=== PATIENT | male | born 1955 | race Caucasian/White ===

== ENCOUNTER 2017-03-22 21:02 | Emergency (ER) | payer BC ==
[2017-03-22] MEDS ORDERED: CEFAZOLIN SODIUM 1 GM PDS 1 GM in SODIUM CHLORIDE 0.9% 100 ML 100 ML IV ONE (21:21)
[2017-03-22] MEDS ORDERED: CEFAZOLIN SODIUM 1 GM PDS ONE (21:21)
[2017-03-22 21:43] LABS: BASOPHILS % (AUTO) 1 % (0-3); EOSINOPHILS % (AUTO) 3 % (0-9); HEMATOCRIT 41 % (39-53); MEAN CORPUSCULAR HGB CONC 33.8 gm/dl (32.0-36.0); MEAN CORPUSCULAR VOLUME 90 fL (80-100); MONOCYTES % (AUTO) 8.4 % (0-12); NEUTROPHILS % (AUTO) 67.8 % (37-80)
[2017-03-22 21:51] LABS: CALCIUM 8.5 mg/dl (8.5-10.1); POTASSIUM 4.1 mMol/L (3.5-5.1)
[2017-03-22] MEDS ORDERED: SODIUM CHLORIDE 0.9% FLUSH 10 ML SOL IV PRN (22:06)
[2017-03-22] MEDS ORDERED: LIDOCAINE HCL 1% MDV SOL SC ONE (22:26)
[2017-03-22] MEDS ORDERED: LIDOCAINE HCL 1% MPF SOL ONE (22:28)
[2017-03-22] MEDS ORDERED: MORPHINE SULFATE 10 MG/ML SOL ONE (22:33)
[2017-03-22] MEDS ORDERED: MORPHINE SULFATE 10 MG/ML SOL INH ONE (22:33)
[2017-03-22 22:53] VITALS: RESP 18; TEMP 99.7
[2017-03-23 00:40] VITALS: BP 121/91; PULSE 107; O2SAT 93
== END 2017-03-23 00:03 | disposition short-term general hospital (02) ==
LOC: ED 21:02
DX: S92.212B Displaced fracture of cuboid bone of left foot, initial encounter for open fracture (principal); S97.82XA Crushing injury of left foot, initial encounter; S91.322A Laceration with foreign body, left foot, initial encounter; W31.82XA Contact with other commercial machinery, initial encounter
CPT/HCPCS: 99285 ×2; 80048; 85025; 85610; J0690; J2001; J2270; 73630

== ENCOUNTER 2017-05-13 08:35 | Inpatient (IN) | payer BC ==
[2017-05-13] MEDS ORDERED: MAGNESIUM HYDROXIDE 30 ML SUS PO PRN (11:09)
[2017-05-13] MEDS ORDERED: OXYCODONE HYDROCHLORIDE 5 MG TAB PO PRN (11:09)
[2017-05-13] MEDS ORDERED: SENNOSIDES A AND B 8.6 MG TAB PO PRN (11:10)
[2017-05-13] MEDS: TRAMADOL HYDROCHLORIDE 50 MG TAB PO SCH ×2 (15:00→20:54)
[2017-05-13] MEDS: PIPERACILLIN/TAZOBACT 3.375 GM PDS IV SCH ×2 (16:31→23:57)
[2017-05-13] MEDS: SODIUM CHLORIDE 0.9% FLUSH 10 ML SOL IV SCH (16:31)
[2017-05-13] MEDS ORDERED: PIPERACILLIN/TAZOBACT 3.375 GM PDS IV SCH (18:00)
[2017-05-13] MEDS: RIVAROXABAN 15 MG PO SCH (20:54)
[2017-05-14] MEDS: SODIUM CHLORIDE 0.9% FLUSH 10 ML SOL IV SCH ×4 (00:07→16:18)
[2017-05-14] MEDS: TRAMADOL HYDROCHLORIDE 50 MG TAB PO SCH ×4 (03:02→21:33)
[2017-05-14] MEDS: PIPERACILLIN/TAZOBACT 3.375 GM PDS IV SCH ×3 (07:54→23:45)
[2017-05-14] MEDS: CITALOPRAM 20 MG TAB PO SCH ×2 (08:43→14:40)
[2017-05-14] MEDS: MULTIVITAMIN2 1 EA TAB PO SCH (08:44)
[2017-05-14] MEDS: RIVAROXABAN 15 MG PO SCH ×2 (08:44→21:32)
[2017-05-14] MEDS: SODIUM CHLORIDE 0.9% FLUSH 10 ML SOL IV PRN ×2 (12:34→21:34)
[2017-05-15] MEDS: SODIUM CHLORIDE 0.9% FLUSH 10 ML SOL IV SCH ×3 (00:11→17:09)
[2017-05-15] MEDS: TRAMADOL HYDROCHLORIDE 50 MG TAB PO SCH ×4 (03:07→21:12)
[2017-05-15] MEDS: MULTIVITAMIN2 1 EA TAB PO SCH (09:46)
[2017-05-15] MEDS: RIVAROXABAN 15 MG PO SCH ×2 (09:48→21:13)
[2017-05-15] MEDS: CITALOPRAM 20 MG TAB PO SCH (09:49)
[2017-05-15] MEDS: PIPERACILLIN/TAZOBACT 3.375 GM PDS IV SCH ×2 (09:51→17:04)
[2017-05-15] MEDS ORDERED: TRAMADOL HYDROCHLORIDE 50 MG TAB ONE ×2 (16:52→20:57)
[2017-05-16] MEDS: SODIUM CHLORIDE 0.9% FLUSH 10 ML SOL IV SCH ×3 (00:14→16:00)
[2017-05-16] MEDS: PIPERACILLIN/TAZOBACT 3.375 GM PDS IV SCH ×3 (00:17→15:53)
[2017-05-16] MEDS: TRAMADOL HYDROCHLORIDE 50 MG TAB PO SCH ×4 (03:54→20:38)
[2017-05-16] MEDS: RIVAROXABAN 15 MG PO SCH ×2 (08:31→20:38)
[2017-05-16] MEDS: MULTIVITAMIN2 1 EA TAB PO SCH (08:31)
[2017-05-16] MEDS: CITALOPRAM 20 MG TAB PO SCH (08:31)
[2017-05-16] MEDS: SODIUM CHLORIDE 0.9% FLUSH 10 ML SOL IV PRN (12:25)
[2017-05-17] MEDS: SODIUM CHLORIDE 0.9% FLUSH 10 ML SOL IV SCH ×4 (00:16→18:53)
[2017-05-17] MEDS: PIPERACILLIN/TAZOBACT 3.375 GM PDS IV SCH ×3 (00:16→15:32)
[2017-05-17] MEDS: TRAMADOL HYDROCHLORIDE 50 MG TAB PO SCH ×4 (04:19→20:01)
[2017-05-17] MEDS: RIVAROXABAN 15 MG PO SCH ×2 (08:07→20:01)
[2017-05-17] MEDS: CITALOPRAM 20 MG TAB PO SCH (08:07)
[2017-05-17] MEDS: MULTIVITAMIN2 1 EA TAB PO SCH (08:08)
[2017-05-18] MEDS: SODIUM CHLORIDE 0.9% FLUSH 10 ML SOL IV SCH ×3 (00:20→18:34)
[2017-05-18] MEDS: PIPERACILLIN/TAZOBACT 3.375 GM PDS IV SCH ×3 (00:21→15:20)
[2017-05-18] MEDS: TRAMADOL HYDROCHLORIDE 50 MG TAB PO SCH ×4 (03:32→21:24)
[2017-05-18] MEDS: MULTIVITAMIN2 1 EA TAB PO SCH (08:10)
[2017-05-18] MEDS: CITALOPRAM 20 MG TAB PO SCH (08:10)
[2017-05-18] MEDS: SODIUM CHLORIDE 0.9% FLUSH 10 ML SOL IV PRN (15:20)
[2017-05-18] MEDS: RIVAROXABAN 10 MG TAB PO SCH (18:34)
[2017-05-19] MEDS: PIPERACILLIN/TAZOBACT 3.375 GM PDS IV SCH ×3 (00:41→15:51)
[2017-05-19] MEDS: SODIUM CHLORIDE 0.9% FLUSH 10 ML SOL IV SCH ×3 (00:42→16:00)
[2017-05-19] MEDS: TRAMADOL HYDROCHLORIDE 50 MG TAB PO SCH ×4 (03:42→20:05)
[2017-05-19] MEDS: MULTIVITAMIN2 1 EA TAB PO SCH (08:21)
[2017-05-19] MEDS: CITALOPRAM 20 MG TAB PO SCH (08:21)
[2017-05-19] MEDS: SODIUM CHLORIDE 0.9% FLUSH 10 ML SOL IV PRN (13:09)
[2017-05-19] MEDS: RIVAROXABAN 10 MG TAB PO SCH (17:19)
[2017-05-20] MEDS: PIPERACILLIN/TAZOBACT 3.375 GM PDS IV SCH ×3 (00:09→15:36)
[2017-05-20] MEDS: SODIUM CHLORIDE 0.9% FLUSH 10 ML SOL IV SCH ×4 (00:10→17:23)
[2017-05-20] MEDS: TRAMADOL HYDROCHLORIDE 50 MG TAB PO SCH ×4 (03:51→20:02)
[2017-05-20] MEDS: MULTIVITAMIN2 1 EA TAB PO SCH (08:19)
[2017-05-20] MEDS: CITALOPRAM 20 MG TAB PO SCH (08:19)
[2017-05-20] MEDS: RIVAROXABAN 10 MG TAB PO SCH (17:29)
[2017-05-21] MEDS: PIPERACILLIN/TAZOBACT 3.375 GM PDS IV SCH ×3 (00:09→16:34)
[2017-05-21] MEDS: SODIUM CHLORIDE 0.9% FLUSH 10 ML SOL IV PRN ×2 (00:10→07:40)
[2017-05-21] MEDS: SODIUM CHLORIDE 0.9% FLUSH 10 ML SOL IV SCH ×3 (00:10→16:46)
[2017-05-21] MEDS: TRAMADOL HYDROCHLORIDE 50 MG TAB PO SCH ×4 (04:53→20:08)
[2017-05-21] MEDS: CITALOPRAM 20 MG TAB PO SCH (09:01)
[2017-05-21] MEDS: MULTIVITAMIN2 1 EA TAB PO SCH (09:01)
[2017-05-21] MEDS: RIVAROXABAN 10 MG TAB PO SCH (18:44)
[2017-05-22] MEDS: PIPERACILLIN/TAZOBACT 3.375 GM PDS IV SCH ×3 (00:33→16:34)
[2017-05-22] MEDS: TRAMADOL HYDROCHLORIDE 50 MG TAB PO SCH ×4 (03:52→21:21)
[2017-05-22] MEDS: SODIUM CHLORIDE 0.9% FLUSH 10 ML SOL IV SCH ×3 (03:53→16:34)
[2017-05-22] MEDS: CITALOPRAM 20 MG TAB PO SCH (09:51)
[2017-05-22] MEDS: MULTIVITAMIN2 1 EA TAB PO SCH (09:51)
[2017-05-22] MEDS: RIVAROXABAN 10 MG TAB PO SCH (18:54)
[2017-05-23] MEDS: SODIUM CHLORIDE 0.9% FLUSH 10 ML SOL IV SCH ×3 (00:59→16:55)
[2017-05-23] MEDS: PIPERACILLIN/TAZOBACT 3.375 GM PDS IV SCH ×3 (00:59→15:33)
[2017-05-23] MEDS: TRAMADOL HYDROCHLORIDE 50 MG TAB PO SCH ×4 (02:54→20:55)
[2017-05-23] MEDS: CITALOPRAM 20 MG TAB PO SCH (09:02)
[2017-05-23] MEDS: MULTIVITAMIN2 1 EA TAB PO SCH (09:02)
[2017-05-23] MEDS: SODIUM CHLORIDE 0.9% FLUSH 10 ML SOL IV PRN ×2 (11:58→15:34)
[2017-05-23] MEDS: RIVAROXABAN 10 MG TAB PO SCH (17:32)
[2017-05-23] MEDS ORDERED: SODIUM CHLORIDE 0.9% 100 ML 100 ML IV ONE (23:48)
[2017-05-23] MEDS ORDERED: PIPERACILLIN/TAZOBACT 3.375 GM PDS IV ONE (23:48)
[2017-05-23] MEDS: PIPERACILLIN/TAZOBACT 3.375 GM 3.375 GM in SODIUM CHLORIDE 0.9% 100 ML 100 ML IV SCH (23:58)
[2017-05-24] MEDS: TRAMADOL HYDROCHLORIDE 50 MG TAB PO SCH ×4 (03:21→21:13)
[2017-05-24] MEDS: PIPERACILLIN/TAZOBACT 3.375 GM 3.375 GM in SODIUM CHLORIDE 0.9% 100 ML 100 ML IV SCH ×3 (08:19→23:54)
[2017-05-24] MEDS: MULTIVITAMIN2 1 EA TAB PO SCH (08:30)
[2017-05-24] MEDS: CITALOPRAM 20 MG TAB PO SCH (08:30)
[2017-05-24] MEDS: SODIUM CHLORIDE 0.9% FLUSH 10 ML SOL IV SCH ×4 (08:31→23:55)
[2017-05-24] MEDS: RIVAROXABAN 10 MG TAB PO SCH (17:59)
[2017-05-24] MEDS ORDERED: PIPERACILLIN/TAZOBACT 3.375 GM PDS IV ONE (22:00)
[2017-05-24] MEDS ORDERED: SODIUM CHLORIDE 0.9% 100 ML 100 ML IV ONE (22:00)
[2017-05-25] MEDS: TRAMADOL HYDROCHLORIDE 50 MG TAB PO SCH ×4 (03:31→21:02)
[2017-05-25] MEDS: SODIUM CHLORIDE 0.9% FLUSH 10 ML SOL IV SCH ×4 (03:34→18:15)
[2017-05-25] MEDS ORDERED: SODIUM CHLORIDE 0.9% 100 ML 100 ML IV ONE ×3 (08:50→23:00)
[2017-05-25] MEDS ORDERED: PIPERACILLIN/TAZOBACT 3.375 GM PDS IV ONE ×3 (08:50→23:00)
[2017-05-25] MEDS: CITALOPRAM 20 MG TAB PO SCH (09:07)
[2017-05-25] MEDS: MULTIVITAMIN2 1 EA TAB PO SCH (09:07)
[2017-05-25] MEDS: PIPERACILLIN/TAZOBACT 3.375 GM 3.375 GM in SODIUM CHLORIDE 0.9% 100 ML 100 ML IV SCH ×3 (09:07→23:54)
[2017-05-25] MEDS: RIVAROXABAN 10 MG TAB PO SCH (18:14)
[2017-05-26] MEDS: TRAMADOL HYDROCHLORIDE 50 MG TAB PO SCH ×4 (02:57→21:25)
[2017-05-26] MEDS ORDERED: SODIUM CHLORIDE 0.9% 100 ML 100 ML IV ONE ×2 (08:41→15:56)
[2017-05-26] MEDS ORDERED: PIPERACILLIN/TAZOBACT 3.375 GM PDS IV ONE ×2 (08:41→15:56)
[2017-05-26] MEDS: SODIUM CHLORIDE 0.9% FLUSH 10 ML SOL IV SCH ×3 (08:50→18:53)
[2017-05-26] MEDS: PIPERACILLIN/TAZOBACT 3.375 GM 3.375 GM in SODIUM CHLORIDE 0.9% 100 ML 100 ML IV SCH ×2 (08:51→16:06)
[2017-05-26] MEDS: MULTIVITAMIN2 1 EA TAB PO SCH (09:05)
[2017-05-26] MEDS: CITALOPRAM 20 MG TAB PO SCH (09:05)
[2017-05-26] MEDS: ACETAMINOPHEN 325 MG PO PRN ×2 (16:19→22:07)
[2017-05-26] MEDS: RIVAROXABAN 10 MG TAB PO SCH (18:53)
[2017-05-27] MEDS ORDERED: PIPERACILLIN/TAZOBACT 3.375 GM PDS IV ONE ×3 (00:07→16:02)
[2017-05-27] MEDS ORDERED: SODIUM CHLORIDE 0.9% 100 ML 100 ML IV ONE ×3 (00:07→16:02)
[2017-05-27] MEDS: PIPERACILLIN/TAZOBACT 3.375 GM 3.375 GM in SODIUM CHLORIDE 0.9% 100 ML 100 ML IV SCH ×3 (00:17→16:15)
[2017-05-27] MEDS: SODIUM CHLORIDE 0.9% FLUSH 10 ML SOL IV SCH ×3 (00:18→16:18)
[2017-05-27] MEDS: TRAMADOL HYDROCHLORIDE 50 MG TAB PO SCH ×4 (05:34→23:27)
[2017-05-27] MEDS: CITALOPRAM 20 MG TAB PO SCH (08:08)
[2017-05-27] MEDS: MULTIVITAMIN2 1 EA TAB PO SCH (08:08)
[2017-05-27] MEDS: ACETAMINOPHEN 325 MG PO PRN ×3 (08:55→22:58)
[2017-05-27] MEDS ORDERED: LISINOPRIL 5 MG TAB PO SCH (09:00)
[2017-05-27] MEDS: RIVAROXABAN 10 MG TAB PO SCH (17:30)
[2017-05-28] MEDS ORDERED: PIPERACILLIN/TAZOBACT 3.375 GM PDS IV ONE ×4 (00:04→23:03)
[2017-05-28] MEDS ORDERED: SODIUM CHLORIDE 0.9% 100 ML 100 ML IV ONE ×4 (00:06→23:05)
[2017-05-28] MEDS: SODIUM CHLORIDE 0.9% FLUSH 10 ML SOL IV SCH ×3 (00:12→16:19)
[2017-05-28] MEDS: PIPERACILLIN/TAZOBACT 3.375 GM 3.375 GM in SODIUM CHLORIDE 0.9% 100 ML 100 ML IV SCH ×3 (00:12→16:19)
[2017-05-28] MEDS: ACETAMINOPHEN 325 MG PO PRN (05:53)
[2017-05-28] MEDS: TRAMADOL HYDROCHLORIDE 50 MG TAB PO SCH ×4 (06:01→16:27)
[2017-05-28] MEDS: CITALOPRAM 20 MG TAB PO SCH (08:12)
[2017-05-28] MEDS: MULTIVITAMIN2 1 EA TAB PO SCH (08:12)
[2017-05-28] MEDS: SODIUM CHLORIDE 0.9% FLUSH 10 ML SOL IV PRN (11:35)
[2017-05-28] MEDS: RIVAROXABAN 10 MG TAB PO SCH (17:50)
[2017-05-29] MEDS: TRAMADOL HYDROCHLORIDE 50 MG TAB PO SCH
[2017-05-29] MEDS: SODIUM CHLORIDE 0.9% FLUSH 10 ML SOL IV PRN ×2 (00:01→23:49)
[2017-05-29] MEDS: SODIUM CHLORIDE 0.9% FLUSH 10 ML SOL IV SCH ×3 (02:38→16:14)
[2017-05-29] MEDS: TRAMADOL HYDROCHLORIDE 50 MG TAB PO PRN ×2 (03:16→21:55)
[2017-05-29] MEDS ORDERED: SODIUM CHLORIDE 0.9% 100 ML 100 ML IV ONE ×3 (07:54→23:24)
[2017-05-29] MEDS ORDERED: PIPERACILLIN/TAZOBACT 3.375 GM PDS IV ONE ×3 (07:54→23:24)
[2017-05-29] MEDS: PIPERACILLIN/TAZOBACT 3.375 GM 3.375 GM in SODIUM CHLORIDE 0.9% 100 ML 100 ML IV SCH ×4 (08:19→23:49)
[2017-05-29] MEDS: MULTIVITAMIN2 1 EA TAB PO SCH (08:29)
[2017-05-29] MEDS: CITALOPRAM 20 MG TAB PO SCH (08:29)
[2017-05-29] MEDS: ACETAMINOPHEN 325 MG PO PRN ×3 (09:31→22:15)
[2017-05-29] MEDS: RIVAROXABAN 10 MG TAB PO SCH (18:03)
[2017-05-29] MEDS: ZOLPIDEM TARTRATE 5 MG TAB PO PRN (23:53)
[2017-05-30] MEDS: SODIUM CHLORIDE 0.9% FLUSH 10 ML SOL IV SCH ×3 (00:38→18:28)
[2017-05-30] MEDS: ACETAMINOPHEN 325 MG PO PRN ×4 (04:41→20:46)
[2017-05-30] MEDS ORDERED: PIPERACILLIN/TAZOBACT 3.375 GM PDS IV ONE ×3 (06:23→23:05)
[2017-05-30] MEDS ORDERED: SODIUM CHLORIDE 0.9% 100 ML 100 ML IV ONE ×3 (06:23→23:05)
[2017-05-30] MEDS: PIPERACILLIN/TAZOBACT 3.375 GM 3.375 GM in SODIUM CHLORIDE 0.9% 100 ML 100 ML IV SCH ×3 (07:03→23:33)
[2017-05-30] MEDS: CITALOPRAM 20 MG TAB PO SCH (08:40)
[2017-05-30] MEDS: MULTIVITAMIN2 1 EA TAB PO SCH (08:40)
[2017-05-30] MEDS: TRAMADOL HYDROCHLORIDE 50 MG TAB PO PRN (12:30)
[2017-05-30] MEDS: RIVAROXABAN 10 MG TAB PO SCH (18:25)
[2017-05-30 18:42] VITALS: O2SAT 94
[2017-05-30] MEDS: ZOLPIDEM TARTRATE 5 MG TAB PO PRN (23:00)
[2017-05-30] MEDS: SODIUM CHLORIDE 0.9% FLUSH 10 ML SOL IV PRN (23:34)
[2017-05-31] MEDS: SODIUM CHLORIDE 0.9% FLUSH 10 ML SOL IV SCH ×3 (00:10→08:46)
[2017-05-31] MEDS: ACETAMINOPHEN 325 MG PO PRN ×2 (03:56→10:30)
[2017-05-31] MEDS ORDERED: PIPERACILLIN/TAZOBACT 3.375 GM PDS IV ONE (06:46)
[2017-05-31] MEDS ORDERED: SODIUM CHLORIDE 0.9% 100 ML 100 ML IV ONE (06:46)
[2017-05-31] MEDS: PIPERACILLIN/TAZOBACT 3.375 GM 3.375 GM in SODIUM CHLORIDE 0.9% 100 ML 100 ML IV SCH (07:45)
[2017-05-31] MEDS: CITALOPRAM 20 MG TAB PO SCH (08:46)
[2017-05-31] MEDS: MULTIVITAMIN2 1 EA TAB PO SCH (08:47)
[2017-05-31] MEDS: TRAMADOL HYDROCHLORIDE 50 MG TAB PO PRN (10:29)
[2017-05-31 10:36] VITALS: BP 132/92; PULSE 100; RESP 20; TEMP 98.2
== END 2017-05-31 14:25 | disposition home or self-care (01) | DRG 344 ==
LOC: ACUTE CARE 14:08
PROVIDERS: ADMIT Family Medicine; ATTEND Family Medicine
DX: M86.9 Osteomyelitis, unspecified (principal); I82.621 Acute embolism and thrombosis of deep veins of right upper extremity; F32.0 Major depressive disorder, single episode, mild; L97.322 Non-pressure chronic ulcer of left ankle with fat layer exposed; L97.422 Non-pressure chronic ulcer of left heel and midfoot with fat layer exposed; R60.9 Edema, unspecified; S99.822D Other specified injuries of left foot, subsequent encounter; S92.212D Displaced fracture of cuboid bone of left foot, subsequent encounter for fracture with routine healing; I10 Essential (primary) hypertension
CPT/HCPCS: 11042; 97597; 97605; 99211; 99308; J2543; A4450; A6232; A6402; A6446